=== PATIENT | female | born 1995 | race American Indian/Alaskan Native ===

== ENCOUNTER 2020-07-30 16:43 | Outpatient (CLI) | payer MEDICAID ==
[2020-07-30 19:17] VITALS: BP 111/69
== END 2020-07-30 19:50 | disposition home or self-care (01) ==
LOC: TRG 16:43 → APU 16:43 → TRG 18:48
PROVIDERS: ATTEND Obstetrics & Gynecology
DX: Z34.83 Encounter for supervision of other normal pregnancy, third trimester (principal); Z3A.34 34 weeks gestation of pregnancy
CPT/HCPCS: 59025

== ENCOUNTER 2020-08-15 13:19 | Outpatient (CLI) | payer MEDICAID ==
[2020-08-15] MEDS ORDERED: LACTATED RINGERS 500 ML IV SCH (14:15)
--- NOTE | 2020-08-15 17:29 | Ultrasound Report ---
CLINICAL DATA: twins TECHNICAL DATA: Document breath, motion, gestational age, tone, and fluid. FINDINGS: Twin gestation-fetus B respiration, tone, and motion are well visualized and normal. Amniotic fluid volume is normal. Biophysical profile score is 8/8. The lower uterine segment is evaluated and there is no evidence of placenta previa. heart rate is Heart Rate. 127 IMPRESSION: The biophysical profile score is 8/8. Signer Name: William Brandt MD Signed: 08/15/2020 5:25 PM Workstation Name: [id number]
--- NOTE | 2020-08-15 17:30 | Ultrasound Report ---
CLINICAL DATA: TWINS TECHNICAL DATA: Document breath, motion, gestational age, tone, and fluid. FINDINGS: Twin fetus a respiration, tone, and motion are well visualized and normal. Amniotic fluid volume is normal. Biophysical profile score is 8/8. The lower uterine segment is evaluated and there is no evidence of placenta previa. heart rate is Heart Rate 140. IMPRESSION: The biophysical profile score is 8/8. Signer Name: William Brandt MD Signed: 08/15/2020 5:25 PM Workstation Name: [id number]
--- NOTE | 2020-08-15 17:34 | Vascular Lab Report ---
DUPLEX DOPPLER LOWER EXTREMITY VEINS, BILATERAL INDICATION / CLINICAL INFORMATION: leg pain. TECHNIQUE: Duplex doppler imaging was performed through the veins of both lower extremities using venous lima wilma and other maneuvers. COMPARISON: None available. FINDINGS: RIGHT COMMON FEMORAL VEIN: Negative. RIGHT FEMORAL VEIN: Negative. RIGHT POPLITEAL VEIN: Negative. RIGHT CALF VEINS: Negative. LEFT COMMON FEMORAL VEIN: Negative. LEFT FEMORAL VEIN: Negative. LEFT POPLITEAL VEIN: Negative. LEFT CALF VEINS: Negative. ADDITIONAL FINDINGS: None. IMPRESSION: 1. No sonographic evidence for DVT in either lower extremity. Signer Name: Rasheed England MD Signed: 08/15/2020 5:30 PM Workstation Name: [id number]
--- NOTE | 2020-08-15 17:39 | Ultrasound Report ---
ULTRASOUND OBSTETRIC INDICATION / CLINICAL INFORMATION: TWINS. Clinical Gestational Age (GA): TECHNIQUE: Transabdominal. COMPARISON: None available. FINDINGS: There is a twin intrauterine . Fetus a is in cephalic position and fetus B is transverse wit h head to the left FETUS A Biparietal Diameter = 8.9 cm = 36 weeks, 1 day(s). Head Circumference = 31.7 cm = 35 weeks, 5 day(s). Abdominal Circumference = 30.1 cm = 34 weeks, 0 day(s). Femur Length = 6.4 cm = 33 weeks, 1 day(s). Average Ultrasound Age (AUA) = 34 weeks, 5 day(s). FETUS B Biparietal Diameter = 8.8 cm = 35 weeks, 4 day(s). Head Circumference = 32.3 cm = 36 weeks, 3 day(s). Abdominal Circumference = 32.5 cm = 36 weeks, 3 day(s). Femur Length = 6.9 cm = 35 weeks, 3 day(s). Average Ultrasound Age (AUA) = 36 weeks, 0 day(s). Heart Rate: Fetus B 127 and fetus a 140 beats per minute. Estimated Weight in grams (if calculated): 2365 g FETUS A and 2833 g for fetus B Estimated Weight Growth Percentile (if calculated): Position: cephalic. Cervix: closed. Length in cm (if measured): Placenta: Fundally FETUS A and anterior fundally for FETUS B Amniotic Fluid Volume: Low normal . Maternal Adnexa: No significant abnormality. IMPRESSION: 1. Twin, living intrauterine with estimated sonographic age of fetus a 34 weeks 5 days and for fetus B 36 weeks, 0 day(s). 2. No significant sonographic abnormality. Recommend maternal consult Signer Name: William Brandt MD Signed: 08/15/2020 5:34 PM Workstation Name: [email or web address]
[2020-08-15 17:46] VITALS: BP 121/60
== END 2020-08-15 18:06 | disposition home or self-care (01) ==
LOC: APU 13:19 → TRG 13:19
PROVIDERS: ATTEND Obstetrics & Gynecology
DX: O30.003 Twin pregnancy, unspecified number of placenta and unspecified number of amniotic sacs, third trimester (principal); Z3A.36 36 weeks gestation of pregnancy
CPT/HCPCS: 76805; 76810; 76819; 93970

== ENCOUNTER 2020-08-28 00:04 | Outpatient (CLI) | payer MEDICAID ==
[2020-08-28 01:02] LABS: Hematocrit 36.1 % (30.3-42.9); Hemoglobin 11.9 gm/dl (10.1-14.3); Mean Corpuscular HGB Conc 33 % (30-34); Mean Corpuscular Volume 82 fl (79-97); Platelet Count 213 K/mm3 (140-440); Red Blood Count 4.41 M/mm3 (3.65-5.03); Red Cell Distribution Width 14.8 % (13.2-15.2)
[2020-08-28 01:10] LABS: Bacteria,Urine 4+ /HPF (Negative); Bilirubin,Urine NEG (Negative); Blood,Urine NEG (Negative); Color,Urine Yellow (Yellow); Mucus,Urine FEW /HPF; Protein,Urine <15 mg/dL mg/dL (Negative); Urobilinogen,Urine < 2.0 mg/dL (<2.0)
[2020-08-28 01:11] LABS: Alanine Aminotransferase 9 units/L (7-56)
[2020-08-28 01:26] VITALS: BP 109/54
[2020-08-28 02:26] LABS: Uric Acid 4.3 mg/dL (3.5-7.6)
== END 2020-08-28 02:24 | disposition home or self-care (01) ==
LOC: TRG 00:04 → APU 00:15 → TRG 02:24
PROVIDERS: ATTEND Obstetrics & Gynecology
DX: O29.43 Spinal and epidural anesthesia induced headache during pregnancy, third trimester (principal); O26.893 Other specified pregnancy related conditions, third trimester; M54.9 Dorsalgia, unspecified; M79.606 Pain in leg, unspecified; Z3A.38 38 weeks gestation of pregnancy
CPT/HCPCS: 36415; 59025; 81001; 82565; 83615; 84450; 84460; 84550; 85027; 87086